=== PATIENT | female | born 1975 | race Two or more races ===

== ENCOUNTER 2021-11-10 09:24 | Outpatient (REF) | payer OTHER, SELFPAY ==
[2021-11-10 09:40] LABS: MANUAL DIFF FLAG NO
[2021-11-10 09:50] LABS: Basophils Absolute Auto 0.1 X10*3/uL (0.0-0.2); Basophils Percent Auto 0.8 % (0-2); Eosinophils Absolute Auto 0.1 X10*3/uL (0.0-0.4); Eosinophils Percent Auto 1.7 % (0-4); Hematocrit 43.2 % (37.0-47.0); Hemoglobin 14.7 g/dl (12.0-16.0); Imm Gran Abs Auto 0.02 X10*3/uL (0.00-0.03); Imm Gran Pct Auto 0.3 % (0.0-0.4); Lymphocytes Percent Auto 26.2 % (20-40); Mean Corpuscular Hemoglobin 31.5 pg (27.0-33.0); Mean Corpuscular Volume 92.7 fL (80.0-98.0); Mean Platelet Volume 9.3 fL (9.4-12.3); Monocytes Absolute Auto 0.3 X10*3/uL (0.1-1.2); Platelet Count 354 X10*3/uL (160-400); Red Blood Count 4.66 X10*6/uL (4.20-5.50); Red Cell Distribution Width 11.3 % (11.0-16.0); White Blood Count 7.5 X10*3/uL (4.8-10.8)
[2021-11-10 10:43] LABS: Alanine Aminotransferase 12 U/L (0-31); Albumin Level 4.2 g/dL (3.5-5.0); Alkaline Phosphatase 80 U/L (39-117); Anion Gap 10 (12-20); Aspartate Amino Transferase 14 U/L (5-31); Bilirubin Total 1.3 mg/dL (0.0-1.0); Blood Urea Nitrogen 12 mg/dL (9-16); Calcium 9.7 mg/dL (8.4-10.2); Carbon Dioxide 28 mmol/L (22-29); Chloride 105 mmol/L (96-108); Cholesterol 154 mg/dL; Estimated Glomerular Filt Rate > 60; Glucose Fasting 95 mg/dL (60-99); HDL Cholesterol 27 mg/dL; LDL Cholesterol Calculated 104 mg/dl; Potassium 4.3 mmol/L (3.3-5.1); Sodium 139 mmol/L (135-145); Total Protein 7.2 g/dL (6.5-8.0); Triglycerides 119 mg/dL
[2021-11-10 10:46] LABS: Thyroid Stimulating Hormone 0.75 uIU/mL (0.32-4.0)
== END 2021-11-10 09:25 | disposition home or self-care (01) ==
LOC: HO.LAB 09:24
PROVIDERS: PCP Internal Medicine; Visit Provider Internal Medicine
DX: Z00.00 Encounter for general adult medical examination without abnormal findings (principal); Z13.0 Encounter for screening for diseases of the blood and blood-forming organs and certain disorders involving the immune mechanism; Z13.9 Encounter for screening, unspecified
CPT/HCPCS: 36415; 80053; 80061; 84443; 85025

== ENCOUNTER 2022-03-14 11:02 | Outpatient (REF) | payer OTHER, SELFPAY ==
--- NOTE | ~2022-03-14 | XR_ITS ---
EXAMINATION: XR CHEST CLINICAL INFORMATION: Cough. COMPARISON: 09/22/2015 TECHNIQUE: 2 views of the chest were obtained. FINDINGS: The lungs are well expanded. There is no focal consolidation, edema, or effusion. No pneumothorax. The cardiomediastinal silhouette is within normal limits. No acute osseous abnormality. XR/XR chest 2V IMPRESSION: Clear lungs.
== END 2022-03-14 11:03 | disposition home or self-care (01) ==
LOC: HO.XRAY 11:02
PROVIDERS: PCP Internal Medicine; Visit Provider Internal Medicine
DX: R05.9 Cough, unspecified (principal)
CPT/HCPCS: 71046

== ENCOUNTER 2023-12-28 14:22 | Outpatient (AMB) | payer OTHER, SELFPAY ==
--- NOTE | 2023-12-28 14:23 | MHC.PC.OV ---
Vital Signs 12/28/23 14:24 Height 5 ft 5 in Weight 145 lb BMI 24.1 BP 112/70 Blood Pressure Location Lt brachial Position Sitting Pulse 68 Pulse Source Pulse Oximeter Pulse Oximetry (%) 98 Oxygen Delivery Method Room Air Intake Visit Reasons: Annual Exam Pro Shop Attendant Required: No Patient Access Representative: Not Required per policy Accompanied by: Self / Same As Patient Allergies azithromycin Allergy (Unknown, Verified 12/28/23 14:24) rash Tobacco use date assessed: 12/28/23 Dental Screening Dental Screen Date: 12/28/23 Did you have a dental visit in the last 12 months?: Yes Did you have a dental problem in the last 6 months where you did not have access to dental care?: No Was dental information given to patient?: Patient has dentist HPI Annual Exam HPI Details healthy [facility] Surgical History Hx of removal of ovary Family History (Updated 12/28/23 @ 14:25 by SHARON Gordon) Father Alive and well Mother Diabetes CVD (cardiovascular disease) Brother No problems noted. Sister No problems noted. Son No problems noted. Social History Housing: House Patient Tobacco Use Status: Never used Tobacco e-Cigarette/Vaping Use: Never Used Second Hand Smoke Exposure: No service: No Current occupational status: employed Current occupational exposures/hazards: No Cognitive needs: No Hearing needs: No Vision needs: No Questionnaire PHQ-9 Over the last 2 weeks, how often have you been bothered by any of the following problems? 1. Little interest or pleasure in doing things: not at all 2. Feeling down, depressed, or hopeless: not at all 3. Trouble falling or staying asleep, or sleeping too much: not at all 4. Feeling tired or having little energy: not at all 5. Poor appetite or overeating: not at all 6. Feeling bad about yourself - or that you are a failure or have let yourself or your family down: not at all 7. Trouble concentrating on things, such as reading the newspaper or watching television: not at all 8. Moving or speaking so slowly that other people could have noticed. Or the opposite - being so fidgety or restless that you have been moving around a lot more than usual: not at all 9. Thoughts that you would be better off or of hurting yourself in some way: not at all Total score: 0 Depression Screening Interpretation: Negative Depression Screening Done: Yes 60305 - PHQ-9 Billing: Yes Source: Developed by Drs. Herminio Chance, Melanie Alejandro, Luis Mackenzie and colleagues, with an educational shakira from [employer]. Thrive Questionnaire Date Thrive assessed: 12/28/23 I am a: Patient What is your living situation today?: I have a steady place to live Within the past 12 months, did the food you bought not last and you didn't have the money to get more?: Never true Within the past 12 months, did you worry whether your food would run out before you got money to buy more?: Never true Do you have trouble paying for medicines?: No Do you have trouble getting transportation to medical appointments?: No Do you have trouble paying your heating and electricity bill?: No Do you have trouble taking care of your child, family member or friend?: No Do you have trouble with day-to-day activities such as bathing, preparing meals, shopping, managing finances, etc.?: No Are you currently unemployed and looking for a job?: No Are you interested in more education?: No Please select the resources that you would like help with: None THRIVE Score: 0 AUDIT C Alcohol Use Questionnaire (AUDIT-C) 1. How often do you have a drink containing alcohol?: Never Total Score: 0 Score Reviewed/Action Taken: Yes DONELL-7 AMB Questionnaire DONELL-7 Date DONELL - 7 assessed: 12/28/23 Feeling nervous, anxious, or on edge: 0 = Not at all Not being able to stop or control worryin = Not at all Worrying too much about different things: 0 = Not at all Trouble relaxin = Not at all Being so restless that it is hard to sit still: 0 = Not at all Becoming easily annoyed or irritable: 0 = Not at all Feeling afraid as if something awful might happen: 0 = Not at all Total DONELL-7 score (0-4 normal; 5-9 mild; 10-14 moderate; 15-21 severe): 0 Source: Developed by Melanie Mock Javon, Luis Mackenzie and colleagues, with an educational shakira from [employer]. Review of Systems Const Denies chills, Denies fatigue, Denies headache(s) and Denies weight loss Eyes Denies change in vision, Denies diplopia and Denies eye pain ENT Denies vertigo, Denies dizziness, Denies headache(s) and Denies nasal discharge Card Denies chest pain, Denies rapid heart rate and Denies dyspnea on exertion Resp Denies chest congestion, Denies cough, Denies pain with cough and Denies dyspnea on exertion GI Denies abdominal pain, Denies hematochezia and Denies change in bowel habits Musc Denies myalgias, Denies arthralgias and Denies joint swelling Skin/Breast Denies lesions and Denies unusual bruising Neuro Denies vertigo, Denies dizziness, Denies headache(s) and Denies focal weakness Endo Denies fatigue Physical exam (Primary Care) Vital Signs: Last Vital Signs Pulse 68 12/28/23 14:24 BP 112/70 12/28/23 14:24 Pulse Ox 98 12/28/23 14:24 Oxygen Delivery Method Room Air 12/28/23 14:24 BMI result Body Mass Index 24.1 Tobacco/Smoking Status: Tobacco use Status Tobacco use date assessed 12/28/23 12/28/23 14:30 Patient Tobacco Use Status Never used Tobacco 12/28/23 14:30 e-Cigarette/Vaping Use Never Used 12/28/23 14:30 PHQ-9: PHQ-9 Score PHQ-9: Total score 0 12/28/23 14:30 Depression Screening Interpretation: Negative Thrive Assessment: Date of Thrive Assessment Date Thrive assessed 12/28/23 12/28/23 14:30 Const General: cooperative, healthy appearing and no acute distress Orientation/consciousness: oriented to person, oriented to place and oriented to time [facility] Head: Yes normal to inspection, Yes normocephalic and Yes atraumatic Mouth: Normal oral and palatal mucosa present and tongue normal Throat: Yes posterior oropharynx normal and Yes uvula midline Eyes General: appearance normal, both eyes and all related structures Neck Neck: Yes normal visual inspection, Yes full ROM and Yes no lymphadenopathy Thyroid: Thyroid normal Carotids: normal carotid upstroke Chest Chest palpation & inspection: normal inspection of the chest Resp Effort & Inspection: normal respiratory effort and able to speak in complete sentences Auscultation: clear to auscultation bilaterally Cardio Jugular venous distension: no JVD Palpation: normal PMI Rate: regular rate Rhythm: regular rhythm Heart sounds: S1 normal heart sound present and S2 normal heart sound present GI Inspection: Yes normal to inspection Palpation (GI): Soft to palpation and No hepatosplenomegaly present Auscultation: normal bowel sounds General: Yes no CVA tenderness Back/Spine/Pelvis Back: no CVA tenderness Skin General skin exam: no rashes or lesions noted Neuro General: oriented to person, oriented to place and oriented to time Extrem General: Yes normal to inspection and Yes full ROM Assessment and Plan Assessment & Plan (1) Physical exam: Code(s): Z00.00 - Encounter for general adult medical examination without abnormal findings Plan: stable; do labs Orders: Orders Complete Blood Count Auto Diff 12/28/23 Z13.0 - Encounter for screening for diseases of the blood and blood-forming organs and certain disorders involving the immune mechanism Comprehensive [place]. Panel Fast 12/28/23 Z13.9 - Encounter for screening, unspecified Lipid Panel 12/28/23 Z13.220 - Encounter for screening for lipoid disorders Coding Level of Care Code Est Pt Prev Care 40-64y(12358) Diagnoses Physical exam Z00.00
[2023-12-28 14:24] VITALS: BP 112/70; PULSE 68; O2SAT 98; BMI 24.1
== END 2023-12-28 14:41 | disposition home or self-care (01) ==
PROVIDERS: Visit Provider Internal Medicine
DX: Z00.00 Encounter for general adult medical examination without abnormal findings (principal)
CPT/HCPCS: 99396

== ENCOUNTER 2024-03-27 11:06 | Outpatient (AMB) | payer OTHER, SELFPAY ==
[2024-03-27 11:08] VITALS: BP 110/72; PULSE 47; O2SAT 96; BMI 24.6
--- NOTE | 2024-03-27 11:08 | MHC.PC.OV ---
Vital Signs 03/27/24 11:08 Height 5 ft 5 in Weight 148 lb BMI 24.6 BP 110/72 Blood Pressure Location Lt brachial Position Sitting Pulse 47 L Pulse Source Pulse Oximeter Pulse Oximetry (%) 96 Oxygen Delivery Method Room Air Intake Visit Reasons: Left Side Hip Pain Globe Cleaner Required: No Accompanied by: Self / Same As Patient Allergies azithromycin Allergy (Unknown, Verified 03/27/24 11:08) rash Tobacco use date assessed: 12/28/23 Dental Screening Dental Screen Date: 12/28/23 HPI Left Side Hip Pain HPI Details pain left anterior superior iliac crest for a week PFSH Surgical History Hx of removal of ovary Family History (Updated 12/28/23 @ 14:25 by SHARON Gordon) Father Alive and well Mother Diabetes CVD (cardiovascular disease) Brother No problems noted. Sister No problems noted. Son No problems noted. Social History Housing: House Patient Tobacco Use Status: Never used Tobacco Tobacco use type: Cigarette e-Cigarette/Vaping Use: Never Used Second Hand Smoke Exposure: No service: No Current occupational status: employed Current occupational exposures/hazards: No Cognitive needs: No Hearing needs: No Vision needs: No Questionnaire PHQ-9 Over the last 2 weeks, how often have you been bothered by any of the following problems? 1. Little interest or pleasure in doing things: not at all 2. Feeling down, depressed, or hopeless: not at all 3. Trouble falling or staying asleep, or sleeping too much: not at all 4. Feeling tired or having little energy: not at all 5. Poor appetite or overeating: not at all 6. Feeling bad about yourself - or that you are a failure or have let yourself or your family down: not at all 7. Trouble concentrating on things, such as reading the newspaper or watching television: not at all 8. Moving or speaking so slowly that other people could have noticed. Or the opposite - being so fidgety or restless that you have been moving around a lot more than usual: not at all 9. Thoughts that you would be better off or of hurting yourself in some way: not at all Total score: 0 Depression Screening Interpretation: Negative Depression Screening Done: Yes 34082 - PHQ-9 Billing: Yes Source: Developed by Drs. Herminio Chance, Melanie Alejandro, Luis Mackenzie and colleagues, with an educational shakira from [employer]. Thrive Questionnaire Date Thrive assessed: 12/28/23 AUDIT C Alcohol Use Questionnaire (AUDIT-C) 1. How often do you have a drink containing alcohol?: Never Total Score: 0 Score Reviewed/Action Taken: Yes DONELL-7 AMB Questionnaire DONELL-7 Date DONELL - 7 assessed: 12/28/23 Source: Developed by Drs. Herminio Chance, Melanie Alejandro, Luis Mackenzie and colleagues, with an educational shakira from [employer]. Review of Systems Const Denies chills, Denies headache(s) and Denies weight loss ENT Denies headache(s) Card Denies chest pain, Denies syncope, Denies irregular heart rhythm and Denies dyspnea Resp Denies chest congestion, Denies cough and Denies dyspnea GI Denies abdominal pain, Denies change in stool character, Denies nausea and Denies vomiting Musc Denies deformity and Denies joint swelling Neuro Denies syncope and Denies headache(s) Physical exam (Primary Care) Vital Signs: Last Vital Signs Pulse 47 L 03/27/24 11:08 BP 110/72 03/27/24 11:08 Pulse Ox 96 03/27/24 11:08 Oxygen Delivery Method Room Air 03/27/24 11:08 BMI result Body Mass Index 24.6 Tobacco/Smoking Status: Tobacco use Status Tobacco use date assessed 12/28/23 03/27/24 11:12 Patient Tobacco Use Status Never used Tobacco 03/27/24 11:12 Tobacco use type Cigarette 03/27/24 11:12 e-Cigarette/Vaping Use Never Used 03/27/24 11:12 PHQ-9: PHQ-9 Score PHQ-9: Total score 0 03/27/24 11:12 Depression Screening Interpretation: Negative Thrive Assessment: Date of Thrive Assessment Date Thrive assessed 12/28/23 03/27/24 11:12 Const General: cooperative, comfortable, no acute distress and alert Neck Neck: Yes no lymphadenopathy Thyroid: Thyroid normal Resp Effort & Inspection: normal respiratory effort Auscultation: clear to auscultation bilaterally Percussion: percussion normal Cardio Jugular venous distension: no JVD Palpation: normal PMI Rate: regular rate Rhythm: regular rhythm Heart sounds: S1 normal heart sound present and S2 normal heart sound present GI Inspection: Yes normal to inspection Palpation (GI): No hepatosplenomegaly present Skin General skin exam: no rashes or lesions noted Extrem General: Yes no clubbing, cyanosis or edema Assessment and Plan Assessment & Plan (1) Hip pain: Code(s): M25.559 - Pain in unspecified hip Plan: xr and rx Orders: Orders XR pelvis 1-2V Today M89.8X8 - Other specified disorders of bone, other site Medications: New naproxen (Naprosyn) 500 mg PO BID PRN 60 tabs 0RF pain Coding Level of Care Code Est Pt Level 3 (38422) Diagnoses Hip pain M25.559
== END 2024-03-27 11:30 | disposition home or self-care (01) ==
PROVIDERS: PCP Internal Medicine; Visit Provider Internal Medicine
DX: M25.559 Pain in unspecified hip (principal)
CPT/HCPCS: 99213

== ENCOUNTER 2024-08-25 09:30 | Outpatient (AMB) | payer OTHER, SELFPAY ==
--- NOTE | 2024-08-25 09:42 | MHC.PC.OV ---
Vital Signs 08/25/24 09:44 Height 5 ft 5 in Weight 147 lb 4 oz BMI 24.5 BP 120/68 Blood Pressure Location Lt brachial Position Sitting Pulse 71 Pulse Source Pulse Oximeter Temp 96.9 F Temp Source Skin Pulse Oximetry (%) 98 Oxygen Delivery Method Room Air Intake Visit Reasons: fever, sore throat Intake Note: Patient is here to follow up on Fever, sore throat, non productive cough . Mill Turner Required: No Field Research Associate: Not Required per policy Accompanied by: Self / Same As Patient Allergies azithromycin Allergy (Unknown, Verified 08/25/24 09:43) rash Tobacco use date assessed: 08/25/24 Dental Screening Dental Screen Date: 08/25/24 Did you have a dental visit in the last 12 months?: Yes Did you have a dental problem in the last 6 months where you did not have access to dental care?: No Was dental information given to patient?: Patient has dentist HPI fever, sore throat HPI Details cough and congestion for a week PFSH Surgical History Hx of removal of ovary Family History Father Alive and well Mother Diabetes CVD (cardiovascular disease) Brother No problems noted. Sister No problems noted. Son No problems noted. Social History Housing: House Patient Tobacco Use Status: Never used Tobacco Tobacco use type: Cigarette e-Cigarette/Vaping Use: Never Used Second Hand Smoke Exposure: No service: No Current occupational status: employed Current occupational exposures/hazards: No Cognitive needs: No Hearing needs: No Vision needs: No Questionnaire PHQ-9 Over the last 2 weeks, how often have you been bothered by any of the following problems? 1. Little interest or pleasure in doing things: not at all 2. Feeling down, depressed, or hopeless: not at all 3. Trouble falling or staying asleep, or sleeping too much: not at all 4. Feeling tired or having little energy: not at all 5. Poor appetite or overeating: not at all 6. Feeling bad about yourself - or that you are a failure or have let yourself or your family down: not at all 7. Trouble concentrating on things, such as reading the newspaper or watching television: not at all 8. Moving or speaking so slowly that other people could have noticed. Or the opposite - being so fidgety or restless that you have been moving around a lot more than usual: not at all 9. Thoughts that you would be better off or of hurting yourself in some way: not at all Total score: 0 Depression Screening Interpretation: Negative Depression Screening Done: Yes Source: Developed by Drs. Herminio Chance, Melanie Alejandro, Luis Mackenzie and colleagues, with an educational shakira from [employer]. Thrive Questionnaire Date Thrive assessed: 08/25/24 I am a: Patient What is your living situation today?: I have a steady place to live Within the past 12 months, did the food you bought not last and you didn't have the money to get more?: Never true Within the past 12 months, did you worry whether your food would run out before you got money to buy more?: Never true Do you have trouble paying for medicines?: No Do you have trouble getting transportation to medical appointments?: No Do you have trouble paying your heating and electricity bill?: No Do you have trouble taking care of your child, family member or friend?: No Do you have trouble with day-to-day activities such as bathing, preparing meals, shopping, managing finances, etc.?: No Are you currently unemployed and looking for a job?: No Are you interested in more education?: No Please select the resources that you would like help with: None Currently or been in a relationship where the following occur: No concerns reported THRIVE Score: 0 AUDIT C Alcohol Use Questionnaire (AUDIT-C) 1. How often do you have a drink containing alcohol?: Never Total Score: 0 DONELL-7 AMB Questionnaire DONELL-7 Date DONELL - 7 assessed: 08/25/24 Feeling nervous, anxious, or on edge: 0 = Not at all Not being able to stop or control worryin = Not at all Worrying too much about different things: 0 = Not at all Trouble relaxin = Not at all Being so restless that it is hard to sit still: 0 = Not at all Becoming easily annoyed or irritable: 0 = Not at all Feeling afraid as if something awful might happen: 0 = Not at all Total DONELL-7 score (0-4 normal; 5-9 mild; 10-14 moderate; 15-21 severe): 0 Source: Developed by Drs. Herminio Chance, Melanie Alejandro, Luis Mackenzie and colleagues, with an educational shakira from [employer]. Review of Systems Const Denies chills, Denies headache(s) and Denies weight loss ENT Denies headache(s) Card Denies chest pain, Denies syncope, Denies irregular heart rhythm and Denies dyspnea Resp Denies chest congestion, Reports cough and Denies dyspnea GI Denies abdominal pain, Denies change in stool character, Denies nausea and Denies vomiting Musc Denies deformity and Denies joint swelling Neuro Denies syncope and Denies headache(s) Physical exam (Primary Care) Vital Signs: Last Vital Signs Temp 96.9 F 08/25/24 09:44 Pulse 71 08/25/24 09:44 BP 120/68 08/25/24 09:44 Pulse Ox 98 08/25/24 09:44 Oxygen Delivery Method Room Air 08/25/24 09:44 BMI result Body Mass Index 24.5 Tobacco/Smoking Status: Tobacco use Status Tobacco use date assessed 08/25/24 08/25/24 09:49 Patient Tobacco Use Status Never used Tobacco 08/25/24 09:49 Tobacco use type Cigarette 08/25/24 09:49 e-Cigarette/Vaping Use Never Used 08/25/24 09:49 PHQ-9: PHQ-9 Score PHQ-9: Total score 0 08/25/24 09:49 Depression Screening Interpretation: Negative Thrive Assessment: Date of Thrive Assessment Date Thrive assessed 08/25/24 08/25/24 09:49 Currently or been in a relationship where the following occur: No concerns reported Const General: cooperative, comfortable, no acute distress and alert Neck Neck: Yes no lymphadenopathy Thyroid: Thyroid normal Resp Effort & Inspection: normal respiratory effort Auscultation: clear to auscultation bilaterally Percussion: percussion normal Cardio Jugular venous distension: no JVD Palpation: normal PMI Rate: regular rate Rhythm: regular rhythm Heart sounds: S1 normal heart sound present and S2 normal heart sound present GI Inspection: Yes normal to inspection Palpation (GI): No hepatosplenomegaly present Skin General skin exam: no rashes or lesions noted Extrem General: Yes no clubbing, cyanosis or edema Coding Level of Care Code Est Pt Level 3 (79569) Diagnoses Cough R05.9 Assessment & Plan Assessment & Plan (1) Cough: Code(s): R05.9 - Cough, unspecified Category: Medical Plan: rx sent Medications: New amoxicillin-pot clavulanate 500-125 mg (Augmentin) 1 tab PO BID 10 tabs 0RF
[2024-08-25 09:44] VITALS: BP 120/68; PULSE 71; TEMP 36.1; O2SAT 98; BMI 24.5
== END 2024-08-25 09:56 | disposition home or self-care (01) ==
PROVIDERS: PCP Internal Medicine; Visit Provider Internal Medicine
DX: R05.9 Cough, unspecified (principal)

== ENCOUNTER → 2024-08-25 09:30 | Outpatient (BNVA) | payer OTHER, SELFPAY | PROVIDERS: PCP Internal Medicine; Visit Provider Internal Medicine ==

== ENCOUNTER 2025-02-25 14:18 | Outpatient (REF) | payer OTHER, SELFPAY ==
[2025-02-25 15:25] LABS: MANUAL DIFF FLAG NO
[2025-02-25 15:42] LABS: Hematocrit 41.2 % (37.0-47.0); Hemoglobin 14.1 g/dl (12.0-16.0); Imm Gran Abs Auto 0.04 X10*3/uL (0.00-0.03); Imm Gran Pct Auto 0.4 % (0.0-0.4); Lymphocytes Absolute Auto 2.2 X10*3/uL (1.2-4.9); Mean Corpuscular HGB Conc 34.2 g/dl (31.0-35.0); Mean Corpuscular Hemoglobin 31.8 pg (27.0-33.0); Mean Corpuscular Volume 92.8 fL (80.0-98.0); NRBC Abs Auto 0.000 X10*3/uL (0.0-0.012); NRBC Pct Auto 0.0 /100WBC (0.0-0.2); Platelet Count 359 X10*3/uL (160-400); Red Blood Count 4.44 X10*6/uL (4.20-5.50); White Blood Count 9.6 X10*3/uL (4.8-10.8)
[2025-02-25 16:22] LABS: Alanine Aminotransferase 28 U/L (0-31); Albumin Level 4.4 g/dL (3.5-5.0); Alkaline Phosphatase 89 U/L (39-117); Anion Gap 11 (12-20); Aspartate Amino Transferase 23 U/L (5-31); Blood Urea Nitrogen 14 mg/dL (9-16); Calcium 8.8 mg/dL (8.4-10.2); Carbon Dioxide 27 mmol/L (22-29); Chloride 106 mmol/L (96-108); Estimated Glomerular Filt Rate > 60; Magnesium 2.1 mg/dL (1.6-2.6); Potassium 3.6 mmol/L (3.3-5.1); Sodium 140 mmol/L (135-145); Total Protein 7.1 g/dL (6.5-8.0)
[2025-02-25 16:39] LABS: Free T4 (Free Thyroxine) 1.06 ng/dL (0.71-1.85)
[2025-02-25 16:52] LABS: Folate 8.3 ng/mL (> or = 4.0); Vitamin B12 309 pg/mL (200-900)
== END 2025-02-25 14:19 | disposition home or self-care (01) ==
LOC: HO.LAB 14:18
DX: F41.9 Anxiety disorder, unspecified (principal); F41.0 Panic disorder [episodic paroxysmal anxiety]; R00.2 Palpitations; N63.10 Unspecified lump in the right breast, unspecified quadrant; Z00.00 Encounter for general adult medical examination without abnormal findings
CPT/HCPCS: 36415; 80053; 82306; 82607; 82746; 83735; 84439; 84443; 85025; 96127

== ENCOUNTER 2025-02-25 14:18 | Outpatient (AMB) | payer OTHER, SELFPAY ==
--- NOTE | 2025-02-25 14:24 | A.OFFPC_ITS ---
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 Accompanied by: Self / Same As Patient Allergies azithromycin Allergy (Unknown, Verified 02/25/25 14:36) rash Medication List - Last Reconciled 02/25/25 by Sandra Mahajan PA-C hydroxyzine HCl 25 mg PO DAILY PRN tobramycin 0.3% 1 drp ophthalmic (eye) Q4H Tobacco use date assessed: 02/25/25 Dental Screening Dental Screen Date: 02/25/25 Did you have a dental visit in the last 12 months?: No Did you have a dental problem in the last 6 months where you did not have access to dental care?: No Was dental information given to patient?: No HPI MARTHA DR Hernandez HPI Details 49 year old female with past medical his tory of anxiety and panic attacks last seen by Dr. Hernandez 08/2024 coming in for MARTHA. Presenting with anxiety and a newly discovered lump in the right breast. She reports feeling overwhelmed and experiencing sensitivity and possible anxiety attacks since a work-related system upgrade on December 31, with symptoms intensifying around January 19 and peaking on February 04. She has been seeing a therapist weekly for two weeks and has tried hydroxyzine once without effect. She also experiences palpitations and heart racing at least once daily associated with her anxiety that is causing her to leave work. The patient discovered a lump in her right breast and is scheduled for a biopsy at the end of the month. [facility] Surgical History Hx of removal of ovary Family History Father Alive and well Mother Diabetes CVD (cardiovascular disease) Brother No problems noted. Sister No problems noted. Son No problems noted. Social History Housing: House Patient Tobacco Use Status: Never used Tobacco Tobacco use type: Cigarette e-Cigarette/Vaping Use: Never Used Second Hand Smoke Exposure: No service: No Current occupational status: employed Current occupational exposures/hazards: No Cognitive needs: No Hearing needs: No Vision needs: No Questionnaire PHQ-9 Over the last 2 weeks, how often have you been bothered by any of the following problems? 1. Little interest or pleasure in doing things: several days 2. Feeling down, depressed, or hopeless: several days 3. Trouble falling or staying asleep, or sleeping too much: several days 4. Feeling tired or having little energy: several days 5. Poor appetite or overeating: several days 6. Feeling bad about yourself - or that you are a failure or have let yourself or your family down: several days 7. Trouble concentrating on things, such as reading the newspaper or watching television: several days 8. Moving or speaking so slowly that other people could have noticed. Or the opposite - being so fidgety or restless that you have been moving around a lot more than usual: several days 9. Thoughts that you would be better off or of hurting yourself in some way: several days Total score: 9 Depression Screening Interpretation: Positive (declining medication ) Depression Screening Follow-up: Existing condition and In treatment Depression Screening Done: Yes 26355 - PHQ-9 Billing: Yes Source: Developed by Drs. Herminio Chance, Melanie Alejandro, Luis Mackenzie and colleagues, with an educational shakira from [employer]. Thrive Questionnaire Date Thrive assessed: 02/25/25 I am a: Patient What is your living situation today?: I have a steady place to live Within the past 12 months, did the food you bought not last and you didn't have the money to get more?: Never true Within the past 12 months, did you worry whether your food would run out before you got money to buy more?: Never true Do you have trouble paying for medicines?: No Do you have trouble getting transportation to medical appointments?: No Do you have trouble paying your heating and electricity bill?: No Do you have trouble taking care of your child, family member or friend?: No Do you have trouble with day-to-day activities such as bathing, preparing meals, shopping, managing finances, etc.?: No Are you currently unemployed and looking for a job?: No Are you interested in more education?: No Please select the resources that you would like help with: None Currently or been in a relationship where the following occur: No concerns reported THRIVE Score: 0 AUDIT C Alcohol Use Questionnaire (AUDIT-C) 1. How often do you have a drink containing alcohol?: Never Total Score: 0 DONELL-7 AMB Questionnaire DONELL-7 Date DONELL - 7 assessed: 02/25/25 Feeling nervous, anxious, or on edge: 1 = Several days Not being able to stop or control worryin = Several days Worrying too much about different things: 1 = Several days Trouble relaxin = Several days Being so restless that it is hard to sit still: 1 = Several days Becoming easily annoyed or irritable: 1 = Several days Feeling afraid as if something awful might happen: 1 = Several days Total DONELL-7 score (0-4 normal; 5-9 mild; 10-14 moderate; 15-21 severe): 7 Source: Developed by Drs. Herminio Chance, Melanie Alejandro, Luis Mackenzie and colleagues, with an educational shakira from [employer]. DONELL-7 Assessment Billing DONELL-7 Assessment Tool: DONELL-7 Assessment 34364 Review of Systems Const Denies body aches, Denies chills, Denies fever(s), Denies headache(s) and Denies poor appetite Eyes Reports no additional complaints ENT Denies dizziness and Denies headache(s) Card Denies chest pain, Denies syncope, Reports rapid heart rate, Denies edema, Reports irregular heart rhythm, Denies lightheadedness and Denies dyspnea Resp Denies dyspnea GI Denies abdominal pain, Denies nausea and Denies vomiting Reports no additional complaints Musc Reports no additional complaints and Denies abnormal gait Skin/Breast Reports system reviewed and no additional complaints, except as documented Neuro Denies abnormal gait, Denies dizziness, Denies syncope and Denies headache(s) Psych Reports no additional complaints Physical exam (Primary Care) Vital Signs: Last Vital Signs Pulse 71 02/25/25 14:26 BP 136/58 L 02/25/25 14:26 Pulse Ox 97 02/25/25 14:26 Oxygen Delivery Method Room Air 02/25/25 14:26 BMI result Body Mass Index 24.9 Tobacco/Smoking Status: Tobacco use Status Tobacco use date assessed 02/25/25 02/25/25 14:31 Patient Tobacco Use Status Never used Tobacco 02/25/25 14:31 Tobacco use type Cigarette 02/25/25 14:31 e-Cigarette/Vaping Use Never Used 02/25/25 14:31 PHQ-9: PHQ-9 Score PHQ-9: Total score 9 02/25/25 14:47 Depression Screening Interpretation: Positive (declining medication ) Depression Screening Follow-up: Existing condition and In treatment Thrive Assessment: Date of Thrive Assessment Date Thrive assessed 02/25/25 02/25/25 14:31 Currently or been in a relationship where the following occur: No concerns reported Const General: cooperative, healthy appearing, comfortable and no acute distress Orientation/consciousness: patient oriented x3 HENMT Head: Yes normocephalic Ears: hearing grossly normal bilaterally General nose exam: Normal external nose present Eyes General: appearance normal, both eyes and all related structures Conjunctivae: conjunctivae normal Neck Neck: Yes full ROM and Yes no lymphadenopathy Resp Effort & Inspection: normal respiratory effort Auscultation: clear to auscultation bilaterally, no crackles, no rales, no rhonchi and no wheezes Cardio Rate: regular rate Rhythm: regular rhythm Skin General skin exam: no rashes or lesions noted Neuro General: patient oriented x3 Gait exam (Neuro): Normal gait present Extrem General: Yes normal to inspection, Yes full ROM and No edema Psych Affect: normal affect Attitude: cooperative Insight: Good insight present (Psych) Judgement: Good judgement present (Psych) Coding Level of Care Code Est Pt Level 4 (43182) Diagnoses Anxiety F41.9 Panic attacks F41.0 Palpitations R00.2 Breast mass, right N63.10 Additional Codes DONELL-7 Assessment Billing - DONELL-7 Assessment Tool: DONELL-7 Assessment 20508 ([id number]) PHQ-9 - 91647 - PHQ-9 Billing: Yes ([id number]) Assessment & Plan Assessment & Plan (1) Anxiety: Code(s): F41.9 - Anxiety disorder, unspecified Category: Medical Plan: The patient will continue weekly therapy sessions to address anxiety and explore coping mechanisms. Hydroxyzine may be used at a higher dose if needed, with caution regarding potential side effects such as grogginess and dry mouth. The patient is advised to try the medication on a weekend to assess tolerance. She was given paperwork for intermittent leave given her severe panic attacks. She will continue to work with counseling and is not interested in additional medication at this time. PLan to follow up in 3 months to re-evaluate. (2) Panic attacks: Code(s): F41.0 - Panic disorder [episodic paroxysmal anxiety] Category: Medical Plan: see above (3) Palpitations: Code(s): R00.2 - Palpitations Category: Medical Plan: Patient complaining of palpitations at least daily typically racing heart and associated with anxiety. Likely related to anxiety however we will order for Holter monitor for further evaluation. Reviewed red flag symptoms and when to present for re-evaluation. PLan to order for blood work for further evaluation as well. (4) Breast mass, right: Code(s): N63.10 - Unspecified lump in the right breast, unspecified quadrant Category: Medical Plan: Patient is currently following [facility] for breast mass and is scheduled to undergo breast biopsy coming up. She will continue to follow up with our office. Plan A biopsy is scheduled for the lump in the right breast at the end of the month. The patient will follow up with results and further management will be determined based on the biopsy findings. Colon cancer screening options were discussed, including colonoscopy and Cologuard. The patient is encouraged to consider these options and decide on a preferred method for screening. This note was constructed using voice recognition software. While every effort has been made to ensure accuracy and [employer], still areas may have been included sometimes these areas may affect the content or meeting of the given s ymptoms. Total time spent caring for the patient today was 30 minutes. This includes time spent before the visit reviewing the chart, time spent during the visit, and time spent after the visit and documentation. Patient was informed and verbally consented to the use of an ambient scribe for clinic note documentation during this visit. Orders: Orders Complete Blood Count Auto Diff Today R00.2 - Palpitations, Z00.00 - Encounter for general adult medical examination without abnormal findings Vitamin B12 and Folate Today R00.2 - Palpitations, Z13.21 - Encounter for screening for nutritional disorder Vitamin D 25-OH Total Today R00.2 - Palpitations, Z13.21 - Encounter for screening for nutritional disorder Free T4 (Free Thyroxine) Today R00.2 - Palpitations, Z00.00 - Encounter for general adult medical examination without abnormal findings Comprehensive Met. Panel Today R00.2 - Palpitations, Z00.00 - Encounter for general adult medical examination without abnormal findings Magnesium Today R00.2 - Palpitations TSH reflex Free T4 Today R00.2 - Palpitations, Z13.29 - Encounter for screening for other suspected endocrine disorder ECG 3 day holter monitor Today R00.2 - Palpitations Medications: Discontinued tobramycin 0.3% Discontinued Reason: Patient no longer taking 1 drp ophthalmic (eye) Q4H 5 mL 0RF
[2025-02-25 14:26] VITALS: BP 136/58; PULSE 71; O2SAT 97; BMI 24.9
--- OUTSIDE RECORDS SUMMARY | 2025-02-25 14:36 | XMS_ITS | Clinical Summary ---
Author Organization [facility] ity Address [address] [place] [address] Care Team Providers Care Horticultural Manager Name Role Phone Unavailable Primary Care Provider Unavailabl e Social History Tobacco Use Types Packs/Day Years Used Date Smoking Tobacco: Never Assessed Comments Unknown Sex and Gender Information Value Date Recorded Sex Assigned at Not on file Legal Sex Female 5:43 PM EST Gender Identity Not on file Sexual Orientation Not on file Plan of Treatment Health Maintenance Due Date Last Done Comments Breast Cancer Screening 1975 DTaP,Tdap,and Td Vaccines (1 - Tdap) 12/02/1994 Hepatitis B Vaccines (1 of 3 - 19+ 3-dose series) 12/02/1994 Cervical Cancer Screening: P ap Smear 12/02/1996 COVID-19 Vaccine ( - 2023-2 5 season) 2024 Depression Screening 07/16/2024 Influenza Vaccine (#1) 2025 HIB Vaccines Aged Out No longer eligi ble based on patient's age to complete this topic HPV Vaccines Aged Out No longer eligi ble based on patient's age to complete this topic Hepatitis A Vaccines Aged Out No long er eligible based on patient's age to complete this topic IPV Vaccines Aged Out No longer eligi ble based on patient's age to complete this topic MMR Vaccines Aged Out No longer eligi ble based on patient's age to complete this topic Meningococcal ACWY Vaccine Aged Out N o longer eligible based on patient's age to complete this topic Meningococcal B Vaccine Aged Out No l onger eligible based on patient's age to complete this topic Pneumococcal Vaccine: Pediat rics (0 to 5 Years) and At-Risk Patients (6 to 49 Years) Aged Out No longer eligible b ased on patient's age to complete this topic RSV Immunization Patients Un jaya 20 months Aged Out No longer eligible b ased on patient's age to complete this topic Varicella Vaccines Aged Out No longer eligible based on patient's age to complete this topic
--- OUTSIDE RECORDS SUMMARY | 2025-02-25 14:36 | XMS_ITS | Clinical Summary ---
Author Organization [facility] Address [address] [facility] [address] [place], [place] [id number] Phone Care Team Providers Care Radiology Transporter Name Role Phone Unknown, Unknown Primary Care Provider Kena aleman Social History Tobacco Use Types Packs/Day Years Used Date Smoking Tobacco: Never Assessed Education Answer Date Recorded Are you interested in more education? Not on ashwini e 11/30/2023 Are you concerned about learning? Not on file 11/30/2023 No 11/30/2023 No 11/30/2023 Digital Access Answer Date Recorded No 11/30/2023 No 11/30/2023 Reliable internet access at home? Not on file 11/30/2023 Device with a working camera? Not on file Comments Unknown Sex and Gender Information Value Date Recorded Sex Assigned at Not on file Legal Sex Female 11:46 AM EDT Gender Identity Not on file Sexual Orientation Not on file Plan of Treatment Not on file Medical Devices Not on file [place] [address] [place] [address] PPO [employer] PPO S Member Subscriber Plan / Payer (Ef fective 2023-Present) Name:Claudia Collado Relation to Subscriber:Self Name:Claudia Collado Payer ID:Not on file Type:PPO Address: [address] PPO S PPO S Member Subscriber Plan / Payer (Ef fective 2023-Present) Name:Claudia Collado Relation to Subscriber:Self Name:TobiasMarilynra Payer ID:Not on file Type:PPO Address: [address] PPO S Member Subscriber Plan / Payer (Ef fective 2023-Present) Name:Claudia Collado Relation to Subscriber:Self Name:Claudia Collado Payer ID:Not on file Type:PPO Address: [address] PPO PPO [employer] Member Subscriber Plan / Payer (Ef fective 2023-Present) Name:Claudia Collado Relation to Subscriber:Self Name:Claudia Collado Payer ID:Not on file Type:PPO Address: [address] PPO Care Teams Radiology Transporter Relationship Specialty Start Date End Date Unknown, Unknown, PCP - General 09/28/17 Additional Source Comments The information contained in this document represents components of the legal health record. It is not the complete legal health record.[facility]
== END 2025-02-25 15:02 | disposition home or self-care (01) ==
LOC: HO.HMCH 14:19
DX: F41.9 Anxiety disorder, unspecified (principal); F41.0 Panic disorder [episodic paroxysmal anxiety]; R00.2 Palpitations; N63.10 Unspecified lump in the right breast, unspecified quadrant

== ENCOUNTER → 2025-03-11 13:33 | Outpatient (REF) | payer OTHER, SELFPAY ==
--- NOTE | 2025-03-11 13:36 | HM_ITS ---
Conclusion: 1. Patient was monitored for total period of 2 days and 23 hours 2. Baseline was normal sinus rhythm with average heart of 63 beats per minute 3. No significant pauses noted but frequent sinus bradycardia noted with 52% of the time heart rate below 60 beats per minute 4. Rare PACs noted 5. Patient marked the counter 7 times without any reported symptoms in the diary correlating with sinus rhythm MTDD
--- OUTSIDE RECORDS SUMMARY | 2025-03-11 14:21 | XMS_ITS | Clinical Summary ---
Author Organization [facility] ity Address [address] [place] [address] Care Team Providers Care Receivable Clerk Name Role Phone Unavailable Primary Care Provider [...]
--- OUTSIDE RECORDS SUMMARY | 2025-03-11 14:21 | XMS_ITS | Encounter Summary ---
Author Organization [facility] Address [address] [place] [address] Phone Care Team Providers Care Refrigerator Crater Name Role Phone Unknown, Unknown Primary Care Provider Kena aleman Encounter Details Date Type Department Care Team (Late st Contact Info) Description 11/30/2023 Transcribe Orders [facility] [address] [place] [address] Kallie Brenner PA-C [address] [place] [address] [email or web address] Social History Tobacco Use Types Packs/Day Years [...] on file Sexual Orientation Not on file documented as of this encounter Plan of Treatment Not on file documented as of this encounter Visit Diagnoses Not on filedocumented in this encounter Care Teams Refrigerator Crater Relationship Specialty Start Date End Date Unknown, Unknown, PCP - General 09/28/17 documented as of this encounter Additional Source Comments The information contained in this document represents components of the legal health record. It is not the complete legal health record.[facility]
--- OUTSIDE RECORDS SUMMARY | 2025-03-11 14:21 | XMS_ITS | Clinical Summary ---
Author Organization [facility] Address [address] [facility] [address] [place], [place] [id number] Phone Care Team Providers Care Envelope Machine Adjuster Name Role Phone Unknown, Unknown Primary Care [...] file Medical Devices Not on file [place] [address] [place] [address] PPO [employer] PPO S Member Subscriber Plan / Payer (Ef fective 2023-Present) Name:Claudia Collado Relation to Subscriber:Self Name:Claudia Collado Payer ID:Not on file Type:PPO Address: [address] PPO S PPO S Member Subscriber Plan / Payer (Ef fective 2023-Present) Name:Claudia Collado Relation to Subscriber:Self Name:TobiasMarilynra Payer ID:Not on file Type:PPO Address: [address] PPO S Member Subscriber Plan / Payer (Ef fective 2023-Present) Name:Claudia Collado Relation to Subscriber:Self Name:Claudia Collado Payer ID:Not on file Type:PPO Address: [address] PPO PPO [employer] Member Subscriber Plan / Payer (Ef fective 2023-Present) Name:Claudia Collado Relation to Subscriber:Self Name:Claudia Collado Payer ID:Not on file Type:PPO Address: [address] PPO Care Teams Envelope Machine Adjuster Relationship Specialty Start Date End Date Unknown, Unknown, PCP - General 09/28/17 Additional Source Comments The information contained in this document represents components of the legal health record. It is not the complete legal health record.[facility]
== END ==
LOC: HO.CARD 13:33
DX: R00.2 Palpitations (principal)
CPT/HCPCS: 93242

== ENCOUNTER → 2025-03-11 13:36 | Outpatient (BNV) | payer OTHER, SELFPAY | PROVIDERS: Visit Provider Internal Medicine Cardiovascular Disease | DX: I49.1 Atrial premature depolarization (principal) | CPT/HCPCS: 93244 ==

== ENCOUNTER 2025-05-28 15:23 | Outpatient (AMB) | payer OTHER, SELFPAY ==
[2025-05-28 15:27] VITALS: BP 112/70; PULSE 55; TEMP 36.3; O2SAT 96; BMI 25.7
--- NOTE | 2025-05-28 15:27 | MHC.PC.OV ---
Vital Signs 05/28/25 15:27 Height 5 ft 5 in Weight 154 lb 4 oz BMI 25.7 BP 112/70 Blood Pressure Location Lt brachial Position Sitting Pulse 55 Pulse Source Pulse Oximeter Temp 97.3 F Temp Source Temporal Artery Scan Pulse Oximetry (%) 96 Oxygen Delivery Method Room Air Intake Visit Reasons: 3mth f/u Extension Educator Required: No Accompanied by: Self / Same As Patient Allergies azithromycin Allergy (Unknown, Verified 05/28/25 15:27) rash Medication List - Last Reconciled 05/28/25 by Sandra Mahajan PA-C cholecalciferol (vitamin D3) 25 mcg PO DAILY levalbuterol tartrate 45 mcg/actuation 1 puff inhalation Q6H Tobacco use date assessed: 02/25/25 Dental Screening Dental Screen Date: 02/25/25 Did you have a dental visit in the last 12 months?: No Did you have a dental problem in the last 6 months where you did not have access to dental care?: No Was dental information given to patient?: No HPI 3mth f/u HPI Details 49 year old female with past medical history of anxiety and panic attacks last seen 02/2025 coming in for follow up. In review of the notes, patient was seen by [facility] 04/2025 s/p US guided bx 02/2025 which showed no evidence of malignancy and plan for repeat US in 6 months. New palpable lump and plan for US and follow up in 2-3 months. She also completed holter monitor which revealed NSR and sinus alonso without arrhythmia. Presenting for follow-up on multiple issues and a new complaint of shortness of breath. She reports intermittent episodes of feeling unable to breathe well, which have occurred at night while lying in bed and during a nap, requiring her to reposition herself. She has had less than 5 episodes over the last several months. She believes they may be related to anxiety. Long ago, she was prescribed an albuterol inhaler which caused heart palpitations. For anxiety, the patient had a panic attack about three weeks ago and prefers to avoid medication. She tried hydroxyzine once in the past, but it was not effective and did not cause drowsiness. She recently completed five counseling sessions through her employer. She would like to continue with formal counseling. [facility] Surgical History Hx of removal of ovary Family History Father Alive and well Mother Diabetes CVD (cardiovascular disease) Brother No problems noted. Sister No problems noted. Son No problems noted. Social History Housing: House Patient Tobacco Use Status: Never used Tobacco Tobacco use type: Cigarette e-Cigarette/Vaping Use: Never Used Second Hand Smoke Exposure: No service: No Current occupational status: employed Current occupational exposures/hazards: No Cognitive needs: No Hearing needs: No Vision needs: No Questionnaire PHQ-9 Over the last 2 weeks, how often have you been bothered by any of the following problems? 1. Little interest or pleasure in doing things: several days 2. Feeling down, depressed, or hopeless: several days 3. Trouble falling or staying asleep, or sleeping too much: several days 4. Feeling tired or having little energy: several days 5. Poor appetite or overeating: several days 6. Feeling bad about yourself - or that you are a failure or have let yourself or your family down: several days 7. Trouble concentrating on things, such as reading the newspaper or watching television: several days 8. Moving or speaking so slowly that other people could have noticed. Or the opposite - being so fidgety or restless that you have been moving around a lot more than usual: several days 9. Thoughts that you would be better off or of hurting yourself in some way: several days Total score: 9 Depression Screening Interpretation: Positive (declining medication ) Depression Screening Follow-up: Existing condition and In treatment Depression Screening Done: Yes Source: Developed by Drs. Herminio Chance, Melanie Alejandro, Luis Mackenzie and colleagues, with an educational shakira from [employer]. Thrive Questionnaire Date Thrive assessed: 02/25/25 I am a: Patient What is your living situation today?: I have a steady place to live Within the past 12 months, did the food you bought not last and you didn't have the money to get more?: Never true Within the past 12 months, did you worry whether your food would run out before you got money to buy more?: Never true Do you have trouble paying for medicines?: No Do you have trouble getting transportation to medical appointments?: No Do you have trouble paying your heating and electricity bill?: No Do you have trouble taking care of your child, family member or friend?: No Do you have trouble with day-to-day activities such as bathing, preparing meals, shopping, managing finances, etc.?: No Are you currently unemployed and looking for a job?: No Are you interested in more education?: No Please select the resources that you would like help with: None Currently or been in a relationship where the following occur: No concerns reported THRIVE Score: 0 AUDIT C Alcohol Use Questionnaire (AUDIT-C) 1. How often do you have a drink containing alcohol?: Never Total Score: 0 DONELL-7 AMB Questionnaire DONELL-7 Date DONELL - 7 assessed: 02/25/25 Feeling nervous, anxious, or on edge: 1 = Several days Not being able to stop or control worryin = Several days Worrying too much about different things: 1 = Several days Trouble relaxin = Several days Being so restless that it is hard to sit still: 1 = Several days Becoming easily annoyed or irritable: 1 = Several days Feeling afraid as if something awful might happen: 1 = Several days Total DONELL-7 score (0-4 normal; 5-9 mild; 10-14 moderate; 15-21 severe): 7 Source: Developed by Drs. Herminio Chance, Melanie Alejandro, Luis Mackenzie and colleagues, with an educational shakira from [employer]. Review of Systems Const Denies body aches, Denies chills and Denies fever(s) Eyes Reports no additional complaints ENT Denies dizziness Card Denies chest pain, Denies lightheadedness and Denies dyspnea Resp Reports as per HPI, Denies cough and Denies dyspnea GI Denies abdominal pain, Denies nausea and Denies vomiting Reports no additional complaints Musc Reports no additional complaints and Denies abnormal gait Skin/Breast Reports system reviewed and no additional complaints, except as documented Neuro Denies abnormal gait and Denies dizziness Psych Reports no additional complaints Physical exam (Primary Care) Vital Signs: Last Vital Signs Temp 97.3 F 05/28/25 15:27 Pulse 55 05/28/25 15:27 BP 112/70 05/28/25 15:27 Pulse Ox 96 05/28/25 15:27 Oxygen Delivery Method Room Air 05/28/25 15:27 BMI result Body Mass Index 25.7 Tobacco/Smoking Status: Tobacco use Status Tobacco use date assessed 02/25/25 05/28/25 15:30 Patient Tobacco Use Status Never used Tobacco 05/28/25 15:30 Tobacco use type Cigarette 05/28/25 15:30 e-Cigarette/Vaping Use Never Used 05/28/25 15:30 PHQ-9: PHQ-9 Score PHQ-9: Total score 9 05/28/25 15:30 Depression Screening Interpretation: Positive (declining medication ) Depression Screening Follow-up: Existing condition and In treatment Thrive Assessment: Date of Thrive Assessment Date Thrive assessed 02/25/25 05/28/25 15:30 Currently or been in a relationship where the following occur: No concerns reported Const General: cooperative, healthy appearing, comfortable and no acute distress Orientation/consciousness: patient oriented x3 HENMT Head: Yes normocephalic Ears: hearing grossly normal bilaterally General nose exam: Normal external nose present Eyes General: appearance normal, both eyes and all related structures Conjunctivae: conjunctivae normal Neck Neck: Yes full ROM and Yes no lymphadenopathy Resp Effort & Inspection: normal respiratory effort Auscultation: clear to auscultation bilaterally, no crackles, no rales, no rhonchi and no wheezes Cardio Rate: regular rate Rhythm: regular rhythm Skin General skin exam: no rashes or lesions noted Neuro General: patient oriented x3 Gait exam (Neuro): Normal gait present Extrem General: Yes normal to inspection, Yes full ROM and No edema Psych Affect: normal affect Attitude: cooperative Insight: Good insight present (Psych) Judgement: Good judgement present (Psych) Coding Level of Care Code Est Pt Level 3 (04518) Diagnoses Anxiety F41.9 Breast mass, right N63.10 Palpitations R00.2 Shortness of breath R06.02 Assessment & Plan Assessment & Plan (1) Anxiety: Code(s): F41.9 - Anxiety disorder, unspecified Category: Medical Plan: The patient reports ongoing anxiety and a recent panic attack three weeks ago. She has tried hydroxyzine in the past without benefit and wishes to avoid medication for anxiety. Given her interest in non-pharmacological treatment, a referral for counseling will be placed. She was advised that the referral service will contact her and can accommodate her upcoming insurance change. (2) Breast mass, right: Code(s): N63.10 - Unspecified lump in the right breast, unspecified quadrant Category: Medical Plan: The patient is actively being followed by the [facility] for a breast mass. After a recent ultrasound, she is scheduled for a repeat ultrasound in two weeks for further evaluation. Will continue to monitor notes and results from her specialists. (3) Palpitations: Code(s): R00.2 - Palpitations Category: Medical Plan: Continue to monitor at this time and advised to keep a log of symptoms. (4) Shortness of breath: Code(s): R06.02 - Shortness of breath Category: Medical Plan: The patient reports intermittent shortness of breath, which is concerning for an underlying pulmonary issue like asthma versus an anxiety-related symptom. To investigate further, a chest X-ray will be ordered. A prescription for a levalbuterol inhaler will be provided for as-needed use; this medication is less likely to cause the tachycardia she experienced with albuterol in the past. The patient is advised to keep a log of her shortness of breath episodes and to seek emergency care if the symptom does not resolve or is accompanied by chest pain. Declined PFT at this time. Plan This note was constructed using voice recognition software. While every effort has been made to ensure accuracy and trains service conductor, still areas may have been included sometimes these areas may affect the content or meeting of the given symptoms. Total time spent caring for the patient today was 20 minutes. This includes time spent before the visit reviewing the chart, time spent during the visit, and time spent after the visit and documentation. Patient was informed and verbally consented to the use of an ambient scribe for clinic note documentation during this visit. Orders: Orders XR chest 2V Today R06.02 - Shortness of breath Lipid Panel Today Z13.220 - Encounter for screening for lipoid disorders Referrals Counseling Referral F41.0 - Panic disorder [episodic paroxysmal anxiety], F41.9 - Anxiety disorder, unspecified Medications: New levalbuterol tartrate 45 mcg/actuation 1 puff inhalation Q6H 15 grams 0RF R06.02 - Shortness of breath
--- OUTSIDE RECORDS SUMMARY | 2025-05-28 18:30 | XMS_ITS | Clinical Summary ---
Author Organization [facility] Address [address] [place], [place] [id number] Phone Care Team Providers Care Crossing Tender Name Role Phone Unknown, Unknown Primary Care [...] file Medical Devices Not on file Insurance [address] [place], [place] [id number] [facility] P[facility] S Member Subscriber Plan / Payer (Ef fective 2023-Present) Name:Tobias Claudia Relation to Subscriber:Self Name:Claudia Collado Payer ID:Not on file Type:PPO [address] [facility] Member Subscriber Plan / Payer (Ef fective 2023-Present) Name:Tobias Claudia Relation to Subscriber:Self Name:Claudia Collado Payer ID:Not on file Type:PPO [address]: [address] [facility] PPO [employer] Member Subscriber Plan / Payer (Ef fective 2023-Present) Name:Claudia Collado Relation to Subscriber:Self Name:Claudia Collado Payer ID:Not on file Type:PPO Address: [address] PPO Care Teams Crossing Tender Relationship Specialty Start Date End Date Unknown, Unknown, PCP - General 09/28/17 Additional Source Comments The information contained in this document represents components of the legal health record. It is not the complete legal health record.[facility]
--- OUTSIDE RECORDS SUMMARY | 2025-05-28 18:30 | XMS_ITS | Clinical Summary ---
Author Organization [facility] Address [address] [place] [address] Care Team Providers Care Security Nurse Name Role Phone Unavailable Primary Care Provider [...] Cervical Cancer Screening: P ap Smear 12/02/1996 Depression Screening 07/16/2024 COVID-19 Vaccine (1 - 2024-2 6 season) 2025 Influenza Vaccine (#1) 2025 RSV Immunization Adult Patie nts (1 - 1-dose 75+ series) 12/02/2050 HIB Vaccines Aged Out No longer eligi [...]
--- OUTSIDE RECORDS SUMMARY | 2025-05-28 18:30 | XMS_ITS | Encounter Summary ---
Author Organization [facility] Address [address] [place] [address] Phone Care Team Providers Care Implementation Manager Name Role Phone Unknown, Unknown Primary Care Provider Kena laeman Encounter Details Date Type Department Care Team (Late st Contact Info) Description 11/30/2023 Transcribe Orders [facility] [address] [place] [address] Kallie Brenner PA-C [address] [employer] [address] [email or web address] Social History Tobacco Use Types Packs/Day Years [...] on filedocumented in this encounter Care Teams Implementation Manager Relationship Specialty Start Date End Date Unknown, Unknown, PCP - General 09/28/17 documented as of this encounter Additional Source Comments The information contained in this document represents components of the legal health record. It is not the complete legal health record.[facility]
== END 2025-05-28 16:18 | disposition home or self-care (01) ==
LOC: HO.HMCH 15:24
DX: F41.9 Anxiety disorder, unspecified (principal); N63.10 Unspecified lump in the right breast, unspecified quadrant; R00.2 Palpitations; R06.02 Shortness of breath